=== PATIENT | male | born 1995 | race Caucasian/White ===

== ENCOUNTER 2021-08-24 17:25 | Emergency (ER) | payer OTHER, BC, SELFPAY ==
[2021-08-24 18:15] VITALS: BP 153/97; PULSE 89; RESP 20; TEMP 36.2; O2SAT 98; BMI 38.0
--- NOTE | 2021-08-24 18:54 | ED_ITS ---
Review of Systems Review of Systems: Positive for right arm burn Negatives are no fever no chills no dizziness no weakness no numbness weakness or tingling no joint pains no other extremity injuries no shortness of breath no chest pain no fainting or feeling faint Yes all other systems are reviewed and are negative [facility] Past Medical History Source: nursing notes reviewed Medical History (Updated 08/25/21 @ 00:01 by Background Ani) No known health problems Physical Exam Vital Signs: Vital Signs: Last Vital Signs Temp 97.2 F 08/24/21 18:15 Pulse 89 08/24/21 18:15 Resp 20 08/24/21 18:15 BP 153/97 H 08/24/21 18:15 Pulse Ox 98 08/24/21 18:15 BMI result Body Mass Index 38.0 General appearance uncomfortable for right arm pain but otherwise no acute distress, cooperative in com Head is normocephalic atraumatic Neck is supple Respiratory no distress Extremities the right arm, right forearm and elbow mostly volar surface has an extensive area of mixed 1st and 2nd degree burn, he does have full range of motion in the elbow and the wrist, there are no 3rd degree carver the carver are not circumferential, the hand is neurovascular intact distal with normal pulses normal sensation and normal motor Other extremities are normal Course Course Course Narrative: I did cleanse some of the blisters with Betadine and then made small incision to let out the fluid as the patient requested this Carver were wrapped in Silvadene dressing and patient was prescribed analgesics and will follow with work connection Discharge Plan Discharge Clinical Impression: Burn Patient Disposition: Home, Self-Care Additional Instructions: Follow with work connection on Friday for work related injury You will need a referral to the wound clinic or to surgery to monitor healing Use Tylenol and Motrin as needed for pain, if they are not sufficient you can use oxycodone which is a narcotic for further pain relief Change dressing daily Return to the ER any time for spreading redness any concern about infection, uncontrolled pain fever any worse condition or any concerns Prescriptions: New silver sulfadiazine [Silvadene] 1 % cream 1 appl topical DAILY Qty: 50 0RF Rx Instructions: apply a 1.5 mm thickness acetaminophen 500 mg tablet 1,000 mg PO QID PRN (Reason: pain) Qty: 30 0RF ibuprofen 600 mg tablet 600 mg PO Q6H PRN (Reason: pain) Qty: 30 0RF oxycodone 5 mg tablet 5 mg PO Q6H PRN (Reason: pain) Qty: 20 0RF Rx Instructions: Narcotic may cause drowsiness, no driving for 6 hours after taking Referrals: [facility] [Provider Group] - 2 days (Follow up care for burn on right forearm) Stand Alone Forms: Work/School Release Interventions: ED Discharge Assessment Last Done: 08/24/21 19:24 Discharge Date/Time: 08/24/21 19:30 HPI - Burn/Smoke Inhalation General Chief complaint: Burn/Smoke Inhalation Stated complaint: arm burn - work related Time Seen by Provider: 08/24/21 18:31 History of Present Illness HPI Narrative: Patient complains of burn to the right arm sustained at work when 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
[2021-08-24] MEDS: Silver Sulfadiazine 1 % Cream 20 GM TUBE 1 APPL TOPICAL (18:59)
[2021-08-24] MEDS: Ketorolac Tromethamine 30 MG/ML VIAL IM (18:59)
[2021-08-24] MEDS: Acetaminophen 325 MG TABLET 975 MG PO (18:59)
--- NOTE | 2021-08-24 19:30 | PC.NURSE ---
RIGHT ARM WASHED WITH NS AND SILVADENE DSD APPLIED WITH NON STICK DSD.
== END 2021-08-24 19:30 | disposition home or self-care (01) ==
PROVIDERS: Emergency Provider Emergency Medicine Emergency Medical Services; PCP Internal Medicine
DX: T22.211A Burn of second degree of right forearm, initial encounter (principal); T22.221A Burn of second degree of right elbow, initial encounter; T22.111A Burn of first degree of right forearm, initial encounter; T22.121A Burn of first degree of right elbow, initial encounter; X10.2XXA Contact with fats and cooking oils, initial encounter; Y93.G3 Activity, cooking and baking; Y92.214 College as the place of occurrence of the external cause; Y99.0 Civilian activity done for income or pay
CPT/HCPCS: 16025; 96372; 99284; J1885

== ENCOUNTER → 2021-08-29 10:33 | Outpatient (BNVA) | payer OTHER, SELFPAY | PROVIDERS: PCP Internal Medicine; Visit Provider Physician Assistant | DX: T22.311A Burn of third degree of right forearm, initial encounter (principal); X19.XXXA Contact with other heat and hot substances, initial encounter | CPT/HCPCS: 99203 ==

== ENCOUNTER 2021-08-31 08:16 | Outpatient (RCR) | payer OTHER, SELFPAY | END 2021-10-02 15:37 | disposition home or self-care (01) | LOC: HO.WCC 08:16 | PROVIDERS: PCP Internal Medicine; Visit Provider Physician Assistant | DX: T22.211D Burn of second degree of right forearm, subsequent encounter (principal); X10.2XXD Contact with fats and cooking oils, subsequent encounter; T31.0 Burns involving less than 10% of body surface; Y93.G3 Activity, cooking and baking; Y92.214 College as the place of occurrence of the external cause; Y99.0 Civilian activity done for income or pay | CPT/HCPCS: 16020; 99212 ==

== ENCOUNTER → 2021-09-07 10:41 | Outpatient (BNVA) | payer OTHER, SELFPAY | PROVIDERS: PCP Internal Medicine; Visit Provider Physician Assistant | DX: T22.311A Burn of third degree of right forearm, initial encounter (principal); X08.8XXA Exposure to other specified smoke, fire and flames, initial encounter | CPT/HCPCS: 99214 ==

== ENCOUNTER → 2021-09-17 11:07 | Outpatient (BNVA) | payer OTHER, SELFPAY | PROVIDERS: PCP Internal Medicine; Visit Provider Physician Assistant Medical | DX: T22.311A Burn of third degree of right forearm, initial encounter (principal); X10.2XXA Contact with fats and cooking oils, initial encounter | CPT/HCPCS: 99213 ==

== ENCOUNTER → 2021-09-24 11:03 | Outpatient (BNVA) | payer OTHER, SELFPAY | PROVIDERS: PCP Internal Medicine; Visit Provider Physician Assistant Medical | DX: T22.311A Burn of third degree of right forearm, initial encounter (principal); X08.8XXA Exposure to other specified smoke, fire and flames, initial encounter | CPT/HCPCS: 99213 ==

== ENCOUNTER → 2021-10-08 11:07 | Outpatient (BNVA) | payer OTHER, SELFPAY | PROVIDERS: PCP Internal Medicine; Visit Provider Physician Assistant Medical | DX: T22.311A Burn of third degree of right forearm, initial encounter (principal) | CPT/HCPCS: 99213 ==